=== PATIENT | female | born 1985 | race Caucasian/White ===

== ENCOUNTER 2016-11-18 15:12 | Emergency (ER) | payer OTHER ==
[2016-11-18 15:13] VITALS: BMI 38.4
[2016-11-18 15:35] VITALS: BP 111/79; TEMP 98.7
[2016-11-18] MEDS ORDERED: Tmp-Smz 800 mg-160 mg DS Tab PO STA (16:15)
[2016-11-18] MEDS ORDERED: TDAP Vaccine 0.5 mL Syr IM ONE (16:15)
--- NOTE | 2016-11-18 16:19 | ED PDOC ---
Arrival/HPI - General Chief Complaint: Bite Time Seen by Provider: 11/18/16 15:47 Historian: Patient - History of Present Illness Narrative History of Present Illness (Text): 11/18/16 16:38 A 31 year old female with no significant past medical history presents to the emergency department with a 1 week duration bug bite on her right forearm. The patient states that yesterday she tried to squeeze the bite, but no puss came out. She notes that she is not up to date on her tetanus vaccine. The patient denies fevers, chills, sore throat, cough, sore throat, chest pain, shortness of breath, dyspnea on exertion, numbness/tingling, itching, or any other complaints. Time/Duration: 1 week Symptom Onset: Sudden Symptom Course: Unchanged Activities at Onset: Rest, Light Context: Home Past Medical History - Provider Review Nursing Documentation Reviewed: Yes - Past History Past History: No Previous - Infectious Disease Hx of Infectious Diseases: None - Reproductive Menopause: No - Past Medical History Past Medical History: No Previous - Cardiac Hx Cardiac Disorders: No - Pulmonary Hx Respiratory Disorders: No - Neurological Hx Neurological Disorder: No - HEENT Hx HEENT Disorder: No - Renal Hx Renal Disorder: No - Endocrine/Metabolic Hx Endocrine Disorders: No - Hematological/Oncological Hx Blood Disorders: No - Integumentary Hx Dermatological Disorder: No - Musculoskeletal/Rheumatological Hx Musculoskeletal Disorders: No - Gastrointestinal Hx Gastrointestinal Disorders: No - Genitourinary/Gynecological Hx Genitourinary Disorders: Yes (HPV) - Psychiatric Hx Depression: No Hx Emotional Abuse: No Hx Physical Abuse: No Hx Substance Use: No - Past Surgical History Past Surgical History: No Previous - Suicidal Assessment Feels Threatened In Home Enviroment: No Family/Social History - Physician Review Nursing Documentation Reviewed: Yes Family/Social History: No Known Family HX Smoking Status: Light Smoker < 10 Cigarettes Daily Hx Alcohol Use: No Hx Substance Use: No Allergies/Home Meds Allergies/Adverse Reactions: Allergies No Known Allergies Allergy (Verified 11/18/16 15:35) Review of Systems - Physician Review All systems were reviewed & negative as marked: Yes - Review of Systems Constitutional: absent: Fevers, Night Sweats ENT: absent: Sore Throat Respiratory: absent: SOB, Cough Cardiovascular: absent: Chest Pain, CASTANEDA Gastrointestinal: absent: Abdominal Pain, Stool Changes, Diarrhea, Nausea, Vomiting Genitourinary Female: absent: Urine Output Changes Musculoskeletal: absent: Back Pain, Neck Pain Skin: Other (Bug bite on the right forearm) Neurological: absent: Headache, Dizziness Physical Exam Vital Signs Reviewed: Yes Vital Signs Temp Pulse Resp BP Pulse Ox 11/18/16 16:38 89 17 99 11/18/16 15:27 98.7 F 80 18 111/79 98 Temperature: Afebrile Blood Pressure: Normal Pulse: Regular Respiratory Rate: Normal Appearance: Positive for: Well-Appearing, Non-Toxic, Comfortable Pain Distress: None Mental Status: Positive for: Alert and Oriented X 3 - Systems Exam Head: Present: Atraumatic, Normocephalic Pupils: Present: PERRL Extroacular Muscles: Present: EOMI Conjunctiva: Present: Normal Mouth: Present: Moist Mucous Membranes Neck: Present: Normal Range of Motion Back: Present: Normal Inspection Upper Extremity: Present: Normal Inspection. No: Cyanosis, Edema Lower Extremity: Present: Normal Inspection. No: Edema Neurological: Present: GCS=15, CN II-XII Intact, Speech Normal Skin: Present: Warm, Dry, Normal Color, Abscess (2cm erythematous indurated non- fluctuant abscess to the distal volar aspect of the R forearm, with no cellulitis. ). No: Rashes Psychiatric: Present: Alert, Oriented x 3, Normal Insight, Normal Concentration Medical Decision Making ED Course and Treatment: 11/18/16 16:42 Impression: A 31 year old female present to the emergency department for further evaluation with a 1 week duration bug bite on her right forearm. DDX : abscess, consider cellulitis Plan: -- Keflex -- Benadryl -- Boostrix Vaccine -- Reassess and disposition Prior Visits: Notes and results from previous visits were reviewed. On 02/24/2015, the patient was seen in the emergency department for dysuria and urinary frequency. The patient was discharged home with a prescription of Keflez and Pyridium. Progress Notes: Likely Dx of abscess was d/w the patient and instructed to apply warm compresses , take antibiotics, follow up with primary care physician in 1-2 days without fail. Return to the emergency room at any time for any new or worsening symptoms. Patient states she fully agrees with and understands discharge instructions. States that she agrees with the plan and disposition. Verbalized and repeated discharge instructions and plan. I have given the patient opportunity to ask any additional questions. - Medication Orders Current Medication Orders: Discontinued Medications Cephalexin Monohydrate (Keflex) 500 mg PO STAT STA PRN Reason: Protocol Stop: 11/18/16 16:16 Last Admin: 11/18/16 16:38 Dose: 500 mg Tetanus/Reduced Diphtheria/Acell Pertussis (Boostrix Vaccine Inj) 0.5 ml IM .ONCE ONE Stop: 11/18/16 16:16 Last Admin: 11/18/16 16:37 Dose: 0.5 ml MAR Immunization Data Document 11/18/16 16:37 [email or web address] (Rec: 11/18/16 16:37 [email or web address] [facility] [id number]) Immunization Data Vaccine Lot Number [id number] Vaccine Expiration Date 11/25/18 Site Given Left Deltoid Route Intramuscular Immunization Units ml Trimethoprim/Sulfamethoxazole (Bactrim Ds Tab) 2 tab PO STAT STA PRN Reason: Protocol Stop: 11/18/16 16:16 Last Admin: 11/18/16 16:37 Dose: 2 tab - PA / WEBSPHERE ADMINISTRATOR / Resident Statement MD/DO has reviewed & agrees with the documentation as recorded. - Scribe Statement The provider has reviewed the documentation as recorded by the Neel Hou Provider Scribe Attestation: All medical record entries made by the Scribe were at my direction and personally dictated by me. I have reviewed the chart and agree that the record accurately reflects my personal performance of the history, physical exam, medical decision making, and the department course for this patient. I have also personally directed, reviewed, and agree with the discharge instructions and disposition. Disposition/Present on Arrival - Present on Arrival Any Indicators Present on Arrival: No History of DVT/PE: No History of Uncontrolled Diabetes: No Urinary Catheter: No History of Decub. Ulcer: No History Surgical Site Infection Following: None - Disposition Have Diagnosis and Disposition been Completed?: Yes Diagnosis: Abscess Disposition: HOME/ ROUTINE Disposition Time: 16:00 Patient Plan: Discharge Condition: STABLE Discharge Instructions (ExitCare): Abscess (ED) Print Language: SRI LANKAN Additional Instructions: Thank you for letting us take care of you today. You were treated for abscess. The emergency medical care you received today was directed at your acute symptoms. If you were prescribed any medication, please fill it and take as directed. It may take several days for your symptoms to resolve. Return to the Emergency Department if your symptoms worsen, do not improve, or if you have any other problems. Please contact your doctor in 2 days for re-evaluation and follow up. Bring any paperwork you were given at discharge with you along with any medications you are taking to your follow up visit. Our treatment cannot replace ongoing medical care by a primary care provider (PCP) outside of the emergency department. Thank you for allowing the [email or web address] team to be part of your care today. Prescriptions: Cephalexin [Keflex] 500 mg PO Q6 #28 capsule Naproxen 500 mg PO BID #30 tab Sulfamethoxazole/Trimethoprim [Bactrim DS 800 mg-160 mg] 2 tab PO BID #28 tab Forms: [employer] (Tai[place]ese), WORK NOTE
[2016-11-18 16:38] VITALS: PULSE 89; RESP 17; O2SAT 99
== END 2016-11-18 16:39 | disposition home or self-care (01) ==
LOC: ED 15:12
DX: L02.413 Cutaneous abscess of right upper limb (principal); Z23 Encounter for immunization